=== PATIENT | male | born 1995 | race Hispanic/Latino ===

== ENCOUNTER 2016-08-01 06:03 | Emergency (ER) | payer OTHER ==
[2016-08-01] MEDS ORDERED: MethylPREDNISolone 40 mg Vial IVP STA (06:18)
[2016-08-01] MEDS ORDERED: Albuterol-Ipratrop 3 mg / 0.5 (3 ml) UD INH STA (06:18)
[2016-08-01] MEDS ORDERED: Albuterol-Ipratrop 3 mg / 0.5 (3 ml) UD ONE (06:19)
--- NOTE | 2016-08-01 06:20 | C.PDOC ---
History Of Present Illness Patient is a 21 year old male with a PMHx of asthma who presents to the ER with a complaint of SOB that began 3 hours ago. Patient denies chest pain, palpitations, fever or chills. Chief Complaint (Nursing): Respiratory Distress History Per: Patient History/Exam Limitations: no limitations Onset/Duration Of Symptoms: Hrs (3) Current Symptoms Are (Timing): Still Present Initiating Event: Upper Respiratory Illness (Asthma) Current Respiratory Medications: Other (Inhaler) Associated Symptoms: denies: Fever, Chills, Chest Pain, Other (Chest pain) Recent travel outside of the [place]: No Past Medical History Reviewed: Historical Data, Nursing Documentation, Vital Signs Vital Signs: Last Vital Signs Temp 97.9 F 08/01/16 06:09 Pulse 112 H 08/01/16 06:09 Resp 24 08/01/16 06:09 BP 138/75 08/01/16 06:09 Pulse Ox 97 08/01/16 06:20 - Medical History PMH: Asthma Surgical History: No Surg Hx Family History: States: Unknown Family Hx - Social History Hx Alcohol Use: No Hx Substance Use: No - Immunization History Hx Tetanus Toxoid Vaccination: No Hx Influenza Vaccination: No Review Of Systems Constitutional: Negative for: Fever, Chills Cardiovascular: Negative for: Chest Pain, Palpitations Respiratory: Positive for: Shortness of Breath Physical Exam - Physical Exam Appears: Well, Non-toxic, Other (Mildly distressed due to wheezing) Skin: Normal Color, Warm, Dry Head: Atraumatic, Normacephalic Oral Mucosa: Moist Chest: Symmetrical, No Tenderness Cardiovascular: Rhythm Regular, No Murmur Respiratory: No Accessory Muscle Use, No Rales, No Rhonchi, Wheezing (Occasional ), Other (Good air flow) Gastrointestinal/Abdominal: Soft, No Tenderness Neurological/Psych: Oriented x3, Normal Speech, Other (No focal deficits) ED Course And Treatment O2 Sat by Pulse Oximetry: 97 (Room air) Pulse Ox Interpretation: Normal Progress Note: Nebulizer treatment and solu-medrol administered. - Scribe Statement The provider has reviewed the documentation as recorded by the Scribe De Espinosa All medical record entries made by the Scribe were at my direction and personally dictated by me. I have reviewed the chart and agree that the record accurately reflects my personal performance of the history, physical exam, medical decision making, and the department course for this patient. I have also personally directed, reviewed, and agree with the discharge instructions and disposition.
--- NOTE | 2016-08-01 06:23 | C.PDOC ---
History Of Present Illness Patient is a 21 year old male with a PMHx of asthma who presents to the ER with a complaint of SOB that began 3 hours ago. Patient denies chest pain, palpitations, fever or chills. Chief Complaint (Nursing): Respiratory Distress History Per: Patient History/Exam Limitations: no limitations Onset/Duration Of Symptoms: Hrs (3) Current Symptoms Are (Timing): Still Present Initiating Event: Upper Respiratory Illness (Asthma) Current Respiratory Medications: Other (Inhaler) Associated Symptoms: denies: Fever, Chills, Other (Chest pain, palpitations) Recent travel outside of the [place]: No Past Medical History Reviewed: Historical Data, Nursing Documentation, Vital Signs Vital Signs: Last Vital Signs Temp 97.9 F 08/01/16 06:09 Pulse 112 H 08/01/16 06:09 Resp 26 H 08/01/16 06:24 BP 138/75 08/01/16 06:09 Pulse Ox 97 08/01/16 06:41 - Medical History PMH: Asthma Surgical History: No Surg Hx Family History: States: Unknown Family Hx - Social History Hx Alcohol Use: No Hx Substance Use: No - Immunization History Hx Tetanus Toxoid Vaccination: No Hx Influenza Vaccination: No Review Of Systems Constitutional: Negative for: Fever, Chills Cardiovascular: Negative for: Chest Pain, Palpitations Respiratory: Positive for: Shortness of Breath Physical Exam - Physical Exam Appears: Well, Non-toxic, Other (Mildly distressed due to wheezing) Skin: Normal Color, Warm, Dry Head: Atraumatic, Normacephalic Oral Mucosa: Moist Chest: Symmetrical, No Tenderness Cardiovascular: Rhythm Regular, No Murmur Respiratory: No Accessory Muscle Use, No Rales, No Rhonchi, Wheezing (Occasional ), Other (Good air flow) Gastrointestinal/Abdominal: Soft, No Tenderness Neurological/Psych: Oriented x3, Normal Speech, Normal Cognition ED Course And Treatment O2 Sat by Pulse Oximetry: 97 (Room air) Pulse Ox Interpretation: Normal Progress Note: Nebulizer treatment and solu-medrol administered. Disposition Counseled Patient/Family Regarding: Diagnosis - Disposition Referrals: [facility] [Outside] Disposition: HOME/ ROUTINE Disposition Time: 06:50 Condition: STABLE Prescriptions: Albuterol/Ipratropium [Combivent Respimat] 1 puff IH Q6 #1 inhaler Methylprednisolone [Medrol Dose Pack (21 tabs)] 4 mg PO DAILY #21 mg Instructions: Asthma (GEN) - POA Present On Arrival: None - Clinical Impression Clinical Impression: Asthma attack - Scribe Statement The provider has reviewed the documentation as recorded by the Scribjanice Espinosa All medical record entries made by the Scribe were at my direction and personally dictated by me. I have reviewed the chart and agree that the record accurately reflects my personal performance of the history, physical exam, medical decision making, and the department course for this patient. I have also personally directed, reviewed, and agree with the discharge instructions and disposition.
[2016-08-01 06:58] VITALS: BP 138/85; PULSE 110; RESP 20; TEMP 98.6; O2SAT 99
== END 2016-08-01 06:57 | disposition home or self-care (01) ==
LOC: C.ER 06:03
DX: J45.909 Unspecified asthma, uncomplicated (principal)
CPT/HCPCS: 94150; 94640; 96374; 99284; J2920